=== PATIENT | female | born 1930 | race Caucasian/White ===

== ENCOUNTER 2018-02-09 19:45 | Emergency (ER) | END 2018-02-09 23:41 | disposition home or self-care (01) ==

== ENCOUNTER 2018-07-31 16:15 | Inpatient (IN) | payer MEDICARE, OTHER ==
[~2018-07-31] VITALS: Ht 160 cm; Wt 75.0 kg
[~2018-07-31 16:15] MED LIST: ATOR40TA68 PO; CARV3.1260 PO; CHOL200056 PO; DEXL60CA2 PO; GABA100C14 PO; GLIM2TAB PO; MELO7.5T38 PO; METF100010 PO; TRAM50TA2 PO; TRAZ-111 PO
[2018-07-31 16:34] VITALS: Ht 160 cm; Wt 75.0 kg
[2018-07-31] MEDS ORDERED: ONDANSETRON 4 MG INJ IV STA (19:28)
[2018-07-31] MEDS ORDERED: morphine 2 MG INJ IV STA (20:59)
[2018-07-31] MEDS ORDERED: SOD CHLORIDE 0.9% 1,000 ML IV ONE (21:00)
[2018-07-31] MEDS ORDERED: ONDANSETRON 4 MG INJ IV PRN ×2 (21:30→23:30)
[2018-07-31] MEDS ORDERED: ENOXAPARIN 80 MG/0.8 ML SYG SC SCH (21:30)
[2018-07-31] MEDS ORDERED: ACETAMINOPHEN 325 MG TAB PO PRN ×2 (21:30→23:30)
[2018-07-31 21:57] VITALS: PULSE 98
[2018-07-31] MEDS ORDERED: IODIXANOL LOCM 100 ML BTL ONE ×2 (21:58→23:16)
[2018-07-31] MEDS ORDERED: SOD CHLORIDE 0.9% 100 ML ONE ×2 (21:58→23:16)
[2018-07-31] MEDS ORDERED: ALBUTEROL/IPRATROPIUM (NEB) 3 ML AMP HHN PRN (23:30)
[2018-07-31] MEDS ORDERED: morphine 2 MG INJ IV PRN (23:30)
[2018-08-01] VITALS (14 sets, daily range): BP systolic 98–117; BP diastolic 51–65; PULSE 93–124; RESP 18
--- NOTE | 2018-08-01 01:11 | ERD ---
ER Documentation Chief Complaint Chief Complaint Pt reports L leg is painful swollen x 1 week causing n/v HPI This is an 88-year-old female with a past medical history of hypertension, hyperlipidemia, diabetes, heart failure, previous vascular surgery of the left lower extremity who is presenting with 1 week of progressive worsening left lower extremity swelling and pain. The patient's pain became so severe this evening that the patient was nauseated and had a few episodes of nonbilious nonbloody vomiting. The patient also endorses right shoulder and back pain of unclear chronicity. The patient reports that she has had waxing and waning episodes of this over the last 6 months to a year, but she does endorse pain today. She does not endorse chest pain or pleuritic pain, but she is tachycardic. The patient denies feeling sick recently. The patient denies fever or chills. The patient has had no headache or vision changes. The patient does not endorse neck or back pain. The patient denies lightheadedness or dizziness. The patient denies abdominal pain. The patient denies changes to bowel movements or urination. The patient has had no focal deficits. The patient has had no weakness or numbness or tingling to the face or extremities. ROS All systems reviewed and are negative except as per history of present illness. Medications Home Meds Active Scripts Tramadol HCl (Tramadol HCl) 50 Mg Tablet, 50 MG PO Q6 PRN for PAIN, #20 TAB Prov:RICHARD HOLLEY MD 05/14/18 Reported Medications Gabapentin* (Gabapentin*) 100 Mg Capsule, 100 MG PO BID, #90 CAP 05/14/18 Trazodone Hcl* (Trazodone Hcl*) 50 Mg Tablet, 50 MG PO QHS, #30 TAB 05/14/18 Cholecalciferol (Vitamin D3) (Vitamin D-3) 2,000 Unit Tablet, 2000 UNIT PO DAILY, TAB 02/09/18 Meloxicam* (Meloxicam*) 7.5 Mg Tablet, 7.5 MG PO BID, #30 TAB 02/09/18 Dexlansoprazole (Dexilant) 60 Mg Agustin., 60 MG PO DAILY, #30 CAP 10/14/17 Glimepiride* (Glimepiride*) 2 Mg Tablet, 2 MG PO WITH BREAKFAST DINNE, TAB 10/14/17 Atorvastatin* (Atorvastatin*) 40 Mg Tablet, 40 MG PO QHS, #30 TAB 10/14/17 Metformin Hcl* (Metformin Hcl*) 1,000 Mg Tablet, 1000 MG PO WITH BREAKFAST DINNE, #60 TAB 10/14/17 Carvedilol* (Carvedilol*) 3.125 Mg Tablet, 3.125 MG PO BID, #60 TAB 10/14/17 Allergies Allergies: Uncoded Allergies: PLASTIC TAPE (Allergy, Mild, 05/19/13) PMhx/Soc History of Surgery: Yes ((L)femoral arterial bypass,R arm sx, R elbow sx, (L) eye cataract sx) Anesthesia Reaction: No Hx Neurological Disorder: No Hx Respiratory Disorders: Yes (INFLUENZA A PNEUMONIA ) Hx Cardiac Disorders: Yes (LEFT FEMORAL ARTERIAL BYPASS, HTN ) Hx Psychiatric Problems: No Hx Miscellaneous Medical Probl: Yes (HTN,PNA,UTI,CKD,PAD,pulm embolism, DM) Hx Alcohol Use: No Hx Substance Use: No Hx Tobacco Use: No Smoking Status: Never smoker FmHx Family History: diabetes Physical Exam Vitals Vital Signs Date Temp Pulse Resp B/P (MAP) Pulse Ox O2 O2 Flow FiO2 Time Delivery Rate 07/31/18 114 16 103/52 97 Room Air 20:21 (69) 07/31/18 98.7 122 16 129/66 97 16:34 (87) Physical Exam Const: No apparent distress, well-developed, well-nourished Head: Normocephalic, Atraumatic Eyes: Normal Conjunctiva. Extraocular movements intact. Pupils equal, round and reactive to light ENT: Normal External Ears, Nose and Mouth. Neck: Full range of motion. No meningismus. Resp: Clear to auscultation bilaterally, No wheezes, rales or rhonchi Cardio: Regular rhythm. Tachycardia. No murmurs, rubs or gallops Abd: Soft, non tender, non distended. Normal bowel sounds Skin: No petechiae or rashes Back: No midline tenderness. No CVA tenderness Ext: No cyanosis. 2+ pitting left lower extremity edema. Neur: Awake and alert, oriented 4. Cranial nerves intact. No facial droop. Normal strength, sensation and coordination. Psych: Normal Mood and Affect Result Diagram: 07/31/18193407/31/181934 Results 24 hrs Laboratory Tests Test 07/31/18 19:35 White Blood Count 12.9 10^3/ul Red Blood Count 4.30 10^6/ul Hemoglobin 13.0 g/dl Hematocrit 40.2 % Mean Corpuscular Volume 93.5 fl Mean Corpuscular Hemoglobin 30.2 pg Mean Corpuscular Hemoglobin Concent 32.3 g/dl Red Cell Distribution Width 13.1 % Platelet Count 338 10^3/UL Mean Platelet Volume 10.4 fl Immature Granulocytes % 0.400 % Neutrophils % 45.1 % Lymphocytes % 45.6 % Monocytes % 6.7 % Eosinophils % 1.5 % Basophils % 0.7 % Nucleated Red Blood Cells % 0.0 /100WBC Immature Granulocytes # 0.050 10^3/ul Neutrophils # 5.8 10^3/ul Lymphocytes # 5.9 10^3/ul Monocytes # 0.9 10^3/ul Eosinophils # 0.2 10^3/ul Basophils # 0.1 10^3/ul Nucleated Red Blood Cells # 0.0 10^3/ul Prothrombin Time 13.8 Sec Prothrombin Time Ratio 1.1 INR International Normalized Ratio 1.05 Activated Partial Thromboplast Time 24.8 Sec D-Dimer 5340.38 ng/ml D-Dimer Comment Sodium Level 137 mmol/L Potassium Level 4.1 mmol/L Chloride Level 100 mmol/L Carbon Dioxide Level 27 mmol/L Anion Gap 10 Blood Urea Nitrogen 15 mg/dl Creatinine 1.22 mg/dl Est Glomerular Filtrat Rate mL/min mL/min Glucose Level 181 mg/dl Calcium Level 9.5 mg/dl Troponin I < 0.012 ng/ml B-Type Natriuretic Peptide 502 PG/ML Current Medications Medications Dose Sig/Shikha Start Time Status Last (Trade) Ordered Route PRN Stop Time Admin Dose Reason Admin Ondansetron 4 mg ONCE STAT 07/31/18 DC 07/31/18 HCl (Zofran IV 19:28 07/31/18 19:50 Inj) 19:30 Procedures/MDM MDM The patient's presentation warrants further investigation. Previous medical records, if available, were reviewed. LABS The patient's laboratory testing was obtained and reviewed. No emergent treatment was required unless described below. CBC: Mild leukocytosis without shift, low suspicion for an infection. No anemia or thrombocytopenia Chemistry: No E/o severe acidosis or alkalosis or diabetic ketoacidosis. Mildly elevated creatinine concerning for possible acute kidney injury. PT/INR: INR unremarkable. Significantly elevated d-dimer. Troponin: No E/o acute ischemia BNP: In an indeterminate range without clinical suspicion for heart failure EKG EKG read by me: Rate/Rhythm: Sinus tachycardia at 115 bpm Intervals: Normal [place]: Left axis deviation Impression: No evidence of acute ischemia. Sinus tachycardia. IMAGING Imaging and Radiology interpretation reviewed. CXR FINDINGS: Study technically degraded by patient kyphotic positioning, rotated in the [place]. Redemonstrated emphysematous changes with flattening of the diaphragms and coarsened interstitial markings. Stable mild eventration of the right hem idiaphragm. Patchy left basilar and lingular opacities suspicious for pneumonia. No identifiable effusion or pneumothorax. Heart size is normal. Atherosclerotic aortic knob. Trachea is midline. Osseous structures are grossly stable with diffuse bony demineralization and degenerative changes of the bilateral shoulders and spine. No free air below the diaphragms. IMPRESSION: Patchy left basilar and lingular opacities suspicious for pneumonia. COPD. Electronically viewed and signed by Physician Gama on 07/31/2018 20:32 Doppler LLE FINDINGS: There is echogenic material occluding the lumen of the left common femoral vein, femoral vein and popliteal vein. Bog[place] cannot be compressed and there is no flow on color-flow Doppler imaging. IMPRESSION: Occlusive deep venous thrombosis left common femoral vein, femoral vein and popliteal vein. Electronically viewed and signed by .Tod Thompson MD, MD on 07/31/2018 20:28 CTA Chest IMPRESSION: No pulmonary embolism is identified, however evaluation for segmental and subsegmental emboli in the lung bases is limited by respiratory motion. No pulmonary edema or consolidation. Small hiatal hernia. Single mildly enlarged right hilar lymph node, nonspecific. Electronically viewed and signed by Shahab Nash MD, MD on 08/01/2018 00:53 TREATMENT/DISPOSITION The patient presents with a significant left lower extremity DVT. She was given a dose of Lovenox in the emergency department. Given the size, I do feel that the patient would benefit from inpatient evaluation and management. The patient was tachycardic when she arrived. I was concerned about the possibility of pulmonary embolism, especially in the setting of an elevated d- dimer. The patient's CTA did not reveal this. At this time, I believe the patient's nausea and vomiting was related to her pain. At this time, I feel that the patient requires admission for further evaluation and management. The patient will be admitted to Dr. Crews in accordance with the patient's insurance. The patient was accepted by to telemetry at 20 1:30 PM on July 31, 2018. Disclaimer: Inadvertent spelling and grammatical errors are likely due to EHR/dictation software use and do not reflect on the overall quality of patient care. Note that the electronic time recorded on this note does not necessarily reflect the actual time of the patient encounter. Departure Diagnosis: Primary Impression: Deep vein thrombosis (DVT) of left lower extremity Affected thrombotic vein of extremity: femoral Chronicity: acute Qualified Codes: I82.412 - Acute embolism and thrombosis of left femoral vein Additional Impressions: Tachycardia Elevated d-dimer Leukocytosis Leukocytosis type: unspecified Qualified Codes: D72.829 - Elevated white blood cell count, unspecified NENO (acute kidney injury) Elevated brain natriuretic peptide (BNP) level Condition: Serious LAMONT REILLY MD Aug 01, 2018 01:09
[2018-08-01] MEDS: PANTOPRAZOLE (EC) 40 MG TAB PO SCH (06:52)
[2018-08-01] MEDS: INSULIN ASPART [NOVOLOG] 3 ML PEN SC SCH ×4 (07:55→20:10)
[2018-08-01] MEDS: GABAPENTIN 100 MG CAP PO SCH ×2 (08:54→20:10)
[2018-08-01] MEDS: CHOLECALCIFEROL 2,000 UNIT CAP PO SCH (08:55)
[2018-08-01] MEDS ORDERED: NON-FORMULARY/PATIENT OWN MED (Dexlansoprazole (Dexilant) 60 MG) PO SCH (09:00)
[2018-08-01] MEDS ORDERED: NON-FORMULARY/PATIENT OWN MED (Cholecalciferol (Vitamin D3) (Vitamin D-3) 2,000 UNIT) PO SCH (09:00)
--- NOTE | 2018-08-01 09:41 | HP ---
CINDY TURNER 08/01/18 0941: Date/Time of Note Date/Time of Note DATE: 08/01/18 TIME: 09:40 Assessment/Plan VTE Prophylaxis Risk score (from [facility])>0 risk: 5 SCD applied (from [employer] [facility]): No SCD contraindicated: DVT Pharmacological prophylaxis: LMWH Lines/Catheters IV Catheter Type (from [facility]): Saline Lock Urinary Cath still in place: No Assessment/Plan Hospital Course 1. Deep vein thrombosis (DVT) of left lower extremity:left common femoral vein, femoral vein and popliteal vein. Elevated d-dimer. 2. SIRS with tachycardia and leukocytosis. It might be reactive to clotting. Xray is positive for "Patchy left basilar and lingular opacities suspicious for pneumonia and COPD. 3. NENO, pt has few times creatinine raised to maximum to 1.74 4. CHF, BNP elevated 5. DM type II 6. Hx of left femoral arterial bypass 2012 7. Hx of both eyes cataract surgery 8. Overweight 9. COPD 10. Right shoulder pain. Xray is negative 11. Dyslipidemia 12. Hx of right elbow sx after fracture, most likely ORIF Assessment/Plan -start heparin drip -GI prophylaxis Protonix -pain medications -pain control -Dr Gonzalez consult, aware -Dr Tsai hematology consult, called -hypoglycemic control Result Diagram: 08/01/18 0510 08/01/18 0510 Results 24hrs Laboratory Tests Test 07/31/18 19:35 08/01/18 05:10 08/01/18 07:48 White Blood Count 12.9 H 12.7 H Red Blood Count 4.30 3.86 L Hemoglobin 13.0 11.7 L Hematocrit 40.2 35.6 L Mean Corpuscular Volume 93.5 92.2 Mean Corpuscular Hemoglobin 30.2 30.3 Mean Corpuscular Hemoglobin Concent 32.3 32.9 Red Cell Distribution Width 13.1 13.2 Platelet Count 338 # 297 Mean Platelet Volume 10.4 11.1 H Immature Granulocytes % 0.400 0.400 Neutrophils % 45.1 47.7 Lymphocytes % 45.6 41.5 Monocytes % 6.7 7.9 Eosinophils % 1.5 1.7 Basophils % 0.7 0.8 Nucleated Red Blood Cells % 0.0 0.0 Immature Granulocytes # 0.050 H 0.050 H Neutrophils # 5.8 6.1 Lymphocytes # 5.9 H 5.3 H Monocytes # 0.9 1.0 H Eosinophils # 0.2 0.2 Basophils # 0.1 0.1 Nucleated Red Blood Cells # 0.0 0.0 Prothrombin Time 13.8 Prothrombin Time Ratio 1.1 INR International Normalized Ratio 1.05 Activated Partial Thromboplast Time 24.8 D-Dimer 5340.38 H D-Dimer Comment Sodium Level 137 137 Potassium Level 4.1 4.1 Chloride Level 100 99 Carbon Dioxide Level 27 27 Anion Gap 10 11 Blood Urea Nitrogen 15 16 Creatinine 1.22 H 1.31 H Est Glomerular Filtrat Rate mL/min Glucose Level 181 164 Calcium Level 9.5 9.1 Troponin I < 0.012 B-Type Natriuretic Peptide 502 H Bedside Glucose 135 HPI/ROS Admit Date/Time Admit Date/Time Jul 31, 2018 at 20:49 Hx of Present Illness This is an 88-year-old female with a past medical history of hypertension, diabetes mellitus type II, hyperlipidemia, diabetes, heart failure, previous vascular surgery of the left lower extremity who is presenting to ER with 1, 5 week of progressive worsening left lower extremity. The leg is swollen and pain 8/10. Pt reported that she is unable to walk. Per family pt stopped walk 10 days ago. The patient's pain became so severe previous to ER visit that the patient was nauseated and had a few episodes of nonbilious nonbloody vomiting. The patient also report right shoulder and back pain for 6 month. ROS Respiratory: shortness of breath; No no complaints, No pain, No cough, No pleuritic pain, No sputum, No wheezing, No other Cardiovascular: chest pain, lightheadedness Musculoskeletal: bone/joint pain, restricted range of motion (right shoulder) PMH/Family/Social Past Medical History Medical History: deep vein thrombosis, diabetes, hypertension Medications Current Medications Ondansetron HCl (Zofran Inj) 4 mg ER BRIDGE PRN IV NAUSEA/VOMITING; Start 07/31/18 at 21:30; Stop 08/01/18 at 21:29 Acetaminophen (Tylenol Tab) 650 mg ER BRIDGE PRN PO .MILD PAIN 1-3 OR TEMP; Start 07/31/18 at 21:30; Stop 08/01/18 at 21:29 Atorvastatin Calcium (Lipitor) 40 mg QHS PO ; Start 08/02/18 at 21:00 Carvedilol (Coreg) 3.125 mg BID PO ; Start 08/01/18 at 09:00 Gabapentin (Neurontin) 100 mg BID PO Last administered on 08/01/18at 08:54; Admin Dose 100 MG; Start 08/01/18 at 09:00 Acetaminophen (Tylenol Tab) 650 mg Q6H PRN PO MILD PAIN(1-3)OR ELEVATED TEMP; Start 07/31/18 at 23:30 Morphine Sulfate (morphine) 2 mg Q4H PRN IV SEVERE PAIN LEVEL 7-10 Last administered on 08/01/18at 03:44; Admin Dose 2 MG; Start 07/31/18 at 23:30 Albuterol/ Ipratropium (Duoneb) 3 ml Q4H RESP THERAPY PRN HHN SHORTNESS OF BREATH; Start 07/31/18 at 23:30 Enoxaparin Sodium (Lovenox) 75 mg QPM SC ; Start 08/01/18 at 21:00 Ondansetron HCl (Zofran Inj) 4 mg Q4H PRN IV NAUSEA AND/OR VOMITING; Start 07/31/18 at 23:30 Insulin Aspart (Novolog Insulin Pen) NOVOLOG *MILD* ALGORITHM WITH MEALS BEDTIME SC ; Start 08/01/18 at 08:00 Cholecalciferol (Vitamin D) 2,000 unit DAILY PO Last administered on 08/01/18at 08:55; Admin Dose 2,000 UNIT; Start 08/01/18 at 09:00 Pantoprazole (Protonix Tab) 40 mg DAILY@06 PO Last administered on 08/01/18at 06:52; Admin Dose 40 MG; Start 08/01/18 at 06:00 Uncoded Allergies: PLASTIC TAPE (Allergy, Mild, 05/19/13) Past Surgical History Past Surgical Hx: other ((L)femoral arterial bypass, 2013, R elbow sx, both eyes cataract sx) Social History Smoking Status: Never smoker Exam/Review of Systems Vital Signs Vitals Vital Signs Date Temp Pulse Resp B/P (MAP) Pulse Ox O2 O2 Flow FiO2 Time Delivery Rate 08/01/18 98 99/53 (68) 08:56 08/01/18 98.3 18 100 07:23 07/31/18 Room Air 21:41 Intake and Output 07/31/18 07/31/18 08/01/18 1515:00 23:00 07:00 IntakeIntake Total 300 ml BalanceBalance 300 ml Exam Exam right shoulder full ROM Constitutional: alert, oriented Head: normocephalic Eyes: nl conjunctiva Neck: supple Respiratory: clear to auscultation Cardiovascular: regular rate and rhythm Gastrointestinal: soft Musculoskeletal: joint tenderness (right heel), swelling (left leg), other (l eft leg scar) SVETLANA KRISHNAN MD 08/01/18 1644: Assessment/Plan Assessment/Plan Assessment/Plan SEEN AND EXAMINED WITH [employer] [facility]E CONSULT ABX Result Diagram: 08/01/18 0510 08/01/18 0510 PMH/Family/Social Past Medical History Uncoded Allergies: PLASTIC TAPE (Allergy, Mild, 05/19/13) CINDY TONEY Aug 01, 2018 09:41 SVETLANA KRISHNAN MD Aug 01, 2018 16:44
[2018-08-01] MEDS ORDERED: HEPARIN 1000 UNITS/ML 10 ML INJ IV PRN (10:00)
[2018-08-01] MEDS ORDERED: HEPARIN 1000 UNITS/ML 10 ML INJ IV ONE ×2 (10:00)
[2018-08-01] MEDS ORDERED: GLUCOSE GEL 15 GRAM TUBE BUCCAL PRN (10:30)
[2018-08-01] MEDS ORDERED: GLUCAGON 1 MG INJ IM PRN (10:30)
[2018-08-01] MEDS ORDERED: GLUCOSE GEL 15 GRAM TUBE PO PRN ×2 (10:30)
[2018-08-01] MEDS ORDERED: DEXTROSE 50% 50 ML SYRINGE IV PRN ×2 (10:30)
[2018-08-01] MEDS: HEPARIN 25000 UNITS/250 ML 250 ML IV SCH ×2 (11:50→20:50)
--- NOTE | 2018-08-01 13:06 | CONS ---
Assessment/Plan Assessment/Plan Assessment/Plan (Daily) DVT left lower extremity involving the left common femoral vein popliteal vein Contraindication to heparin at the present time Tinea heparin patient will need anticoagulation for 3-6 months Consultation Date/Type/Reason Admit Date/Time Jul 31, 2018 at 20:49 Date of Consultation: Aug 01, 2018 Type of Consult Vascular surgery Reason for Consultation DVT Date/Time of Note DATE: 08/01/18 TIME: 13:04 Hx of Present Illness 88-year-old female was admitted because of the swelling of the left lower extremity Doppler ultrasound has been done which shows occlusive DVT involving the left femoral and popliteal vein patient is currently being treated with heparin swelling of the left lower extremity has decreased Respiratory: no complaints Cardiovascular: no complaints Gastrointestinal: no complaints Genitourinary: no complaints Musculoskeletal: no complaints Skin: no complaints Neurologic: no complaints Endocrine: no complaints Lymphatic: no complaints Psychological: no complaints, nl mood/affect Past Medical History Medical History: deep vein thrombosis, diabetes, hypertension Home Meds Active Scripts Tramadol HCl (Tramadol HCl) 50 Mg Tablet, 50 MG PO Q6 PRN for PAIN, #20 TAB Prov:RICHARD HOLLEY MD 05/14/18 Reported Medications Gabapentin* (Gabapentin*) 100 Mg Capsule, 100 MG PO BID, #90 CAP 05/14/18 Trazodone Hcl* (Trazodone Hcl*) 50 Mg Tablet, 50 MG PO QHS, #30 TAB 05/14/18 Cholecalciferol (Vitamin D3) (Vitamin D-3) 2,000 Unit Tablet, 2000 UNIT PO DAILY, TAB 02/09/18 Meloxicam* (Meloxicam*) 7.5 Mg Tablet, 7.5 MG PO BID, #30 TAB 02/09/18 Dexlansoprazole (Dexilant) 60 Mg , 60 MG PO DAILY, #30 CAP 10/14/17 Glimepiride* (Glimepiride*) 2 Mg Tablet, 2 MG PO WITH BREAKFAST DINNE, TAB 10/14/17 Atorvastatin* (Atorvastatin*) 40 Mg Tablet, 40 MG PO QHS, #30 TAB 10/14/17 Metformin Hcl* (Metformin Hcl*) 1,000 Mg Tablet, 1000 MG PO WITH BREAKFAST DINNE, #60 TAB 10/14/17 Carvedilol* (Carvedilol*) 3.125 Mg Tablet, 3.125 MG PO BID, #60 TAB 10/14/17 Medications Current Medications Ondansetron HCl (Zofran Inj) 4 mg ER BRIDGE PRN IV NAUSEA/VOMITING; Start 07/31/18 at 21:30; Stop 08/01/18 at 21:29 Acetaminophen (Tylenol Tab) 650 mg ER BRIDGE PRN PO .MILD PAIN 1-3 OR TEMP; Start 07/31/18 at 21:30; Stop 08/01/18 at 21:29 Atorvastatin Calcium (Lipitor) 40 mg QHS PO ; Start 08/02/18 at 21:00 Carvedilol (Coreg) 3.125 mg BID PO ; Start 08/01/18 at 09:00 Gabapentin (Neurontin) 100 mg BID PO Last administered on 08/01/18at 08:54; Admin Dose 100 MG; Start 08/01/18 at 09:00 Acetaminophen (Tylenol Tab) 650 mg Q6H PRN PO MILD PAIN(1-3)OR ELEVATED TEMP; Start 07/31/18 at 23:30 Morphine Sulfate (morphine) 2 mg Q4H PRN IV SEVERE PAIN LEVEL 7-10 Last administered on 08/01/18at 03:44; Admin Dose 2 MG; Start 07/31/18 at 23:30 Albuterol/ Ipratropium (Duoneb) 3 ml Q4H RESP THERAPY PRN HHN SHORTNESS OF BREATH; Start 07/31/18 at 23:30 Ondansetron HCl (Zofran Inj) 4 mg Q4H PRN IV NAUSEA AND/OR VOMITING; Start 07/31/18 at 23:30 Insulin Aspart (Novolog Insulin Pen) NOVOLOG *MILD* ALGORITHM WITH MEALS BEDTIME SC Last administered on 08/01/18at 11:54; Admin Dose 2 UNIT; Start 08/01/18 at 08:00 Cholecalciferol (Vitamin D) 2,000 unit DAILY PO Last administered on 08/01/18at 08:55; Admin Dose 2,000 UNIT; Start 08/01/18 at 09:00 Pantoprazole (Protonix Tab) 40 mg DAILY@06 PO Last administered on 08/01/18at 06:52; Admin Dose 40 MG; Start 08/01/18 at 06:00 Heparin Sodium (Porcine) (Heparin (1000 Units/ml)) 3,000 unit PER PROTOCOL PRN IV aPTT<47-57; Start 08/01/18 at 10:00 Heparin Sodium (Porcine) 250 ml @ 13.5 mls/hr PER PROTOCOL IV Last administer ed on 08/01/18at 11:50; Admin Dose 13.5 MLS/HR; Start 08/01/18 at 10:00 Miscellaneous Information 1 ea NOTE XX ; Start 08/01/18 at 10:30 Glucose (Glutose) 15 gm Q15M PRN PO DECREASED GLUCOSE; Start 08/01/18 at 10:30 Glucose (Glutose) 22.5 gm Q15M PRN PO DECREASED GLUCOSE; Start 08/01/18 at 10:30 Dextrose (D50w Syringe) 25 ml Q15M PRN IV DECREASED GLUCOSE; Start 08/01/18 at 10:30 Dextrose (D50w Syringe) 50 ml Q15M PRN IV DECREASED GLUCOSE; Start 08/01/18 at 10:30 Glucagon (Glucagen) 1 mg Q15M PRN IM DECREASED GLUCOSE; Start 08/01/18 at 10:30 Glucose (Glutose) 15 gm Q15M PRN BUCCAL DECREASED GLUCOSE; Start 08/01/18 at 10:30 Allergies: Uncoded Allergies: PLASTIC TAPE (Allergy, Mild, 05/19/13) Past Surgical History Past Surgical Hx: other ((L)femoral arterial bypass, 2012, R elbow sx, both eyes cataract sx) Social History Smoking Status: Never smoker Exam/Review of Systems Exam Vitals Vital Signs Date Temp Pulse Resp B/P (MAP) Pulse Ox O2 O2 Flow FiO2 Time Delivery Rate 08/01/18 114 12:26 08/01/18 98.0 18 98/56 (70) 95 11:33 07/31/18 Room Air 21:41 Intake and Output 07/31/18 07/31/18 08/01/18 1414:59 22:59 06:59 IntakeIntake Total 300 ml BalanceBalance 300 ml ENMT: nl external ears & nose, nl lips & teeth, nl nasal mucosa & septum Neck: supple, non-tender Respiratory: clear to auscultation, normal air movement Cardiovascular: regular rate and rhythm, nl pulses Gastrointestinal: soft, nl liver, spleen, non-tender Musculoskeletal: nl extremities to inspection, nl gait and stance Extremities: normal pulses Additional Comments Left lower extremity with swelling 1+ edema both feet are warm no signs of ischemia Left thigh slightly tender to touch Results Result Diagram: 08/01/18 0510 08/01/18 0510 Results 24hrs Laboratory Tests Test 07/31/18 19:35 08/01/18 05:10 08/01/18 07:48 08/01/18 11:27 White Blood Count 12.9 H 12.7 H Red Blood Count 4.30 3.86 L Hemoglobin 13.0 11.7 L Hematocrit 40.2 35.6 L Mean Corpuscular Volume 93.5 92.2 Mean Corpuscular 30.2 30.3 Hemoglobin Mean Corpuscular 32.3 32.9 Hemoglobin Concent Red Cell Distribution 13.1 13.2 Width Platelet Count 338 # 297 Mean Platelet Volume 10.4 11.1 H Immature Granulocytes % 0.400 0.400 Neutrophils % 45.1 47.7 Lymphocytes % 45.6 41.5 Monocytes % 6.7 7.9 Eosinophils % 1.5 1.7 Basophils % 0.7 0.8 Nucleated Red Blood 0.0 0.0 Cells % Immature Granulocytes # 0.050 H 0.050 H Neutrophils # 5.8 6.1 Lymphocytes # 5.9 H 5.3 H Monocytes # 0.9 1.0 H Eosinophils # 0.2 0.2 Basophils # 0.1 0.1 Nucleated Red Blood 0.0 0.0 Cells # Prothrombin Time 13.8 Prothrombin Time Ratio 1.1 INR International 1.05 Normalized Ratio Activated 24.8 Partial Thromboplast Time D-Dimer 5340.38 H D-Dimer Comment Sodium Level 137 137 Potassium Level 4.1 4.1 Chloride Level 100 99 Carbon Dioxide Level 27 27 Anion Gap 10 11 Blood Urea Nitrogen 15 16 Creatinine 1.22 H 1.31 H Est Glomerular Filtrat Rate mL/min Glucose Level 181 164 Calcium Level 9.5 9.1 Troponin I < 0.012 B-Type Natriuretic 502 H Peptide Bedside Glucose 135 187 Medications Medication Current Medications Ondansetron HCl (Zofran Inj) 4 mg ER BRIDGE PRN IV NAUSEA/VOMITING; Start 07/31/18 at 21:30; Stop 08/01/18 at 21:29 Acetaminophen (Tylenol Tab) 650 mg ER BRIDGE PRN PO .MILD PAIN 1-3 OR TEMP; Start 07/31/18 at 21:30; Stop 08/01/18 at 21:29 Atorvastatin Calcium (Lipitor) 40 mg QHS PO ; Start 08/02/18 at 21:00 Carvedilol (Coreg) 3.125 mg BID PO ; Start 08/01/18 at 09:00 Gabapentin (Neurontin) 100 mg BID PO Last administered on 08/01/18 08:54; Admin Dose 100 MG; Start 08/01/18 at 09:00 Acetaminophen (Tylenol Tab) 650 mg Q6H PRN PO MILD PAIN(1-3)OR ELEVATED TEMP; Start 07/31/18 at 23:30 Morphine Sulfate (morphine) 2 mg Q4H PRN IV SEVERE PAIN LEVEL 7-10 Last administered on 08/01/18 03:44; Admin Dose 2 MG; Start 07/31/18 at 23:30 Albuterol/ Ipratropium (Duoneb) 3 ml Q4H RESP THERAPY PRN HHN SHORTNESS OF BREATH; Start 07/31/18 at 23:30 Ondansetron HCl (Zofran Inj) 4 mg Q4H PRN IV NAUSEA AND/OR VOMITING; Start 07/31/18 at 23:30 Insulin Aspart (Novolog Insulin Pen) NOVOLOG *MILD* ALGORITHM WITH MEALS BEDTIME SC Last administered on 08/01/18 11:54; Admin Dose 2 UNIT; Start 08/01/18 at 08:00 Cholecalciferol (Vitamin D) 2,000 unit DAILY PO Last administered on 08/01/18 08:55; Admin Dose 2,000 UNIT; Start 08/01/18 at 09:00 Pantoprazole (Protonix Tab) 40 mg DAILY@06 PO Last administered on 08/01/18 06:52; Admin Dose 40 MG; Start 08/01/18 at 06:00 Heparin Sodium (Porcine) (Heparin (1000 Units/ml)) 3,000 unit PER PROTOCOL PRN IV aPTT<47-57; Start 08/01/18 at 10:00 Heparin Sodium (Porcine) 250 ml @ 13.5 mls/hr PER PROTOCOL IV Last ad ministered on 08/01/18 11:50; Admin Dose 13.5 MLS/HR; Start 08/01/18 at 10:00 Miscellaneous Information 1 ea NOTE XX ; Start 08/01/18 at 10:30 Glucose (Glutose) 15 gm Q15M PRN PO DECREASED GLUCOSE; Start 08/01/18 at 10:30 Glucose (Glutose) 22.5 gm Q15M PRN PO DECREASED GLUCOSE; Start 08/01/18 at 10:30 Dextrose (D50w Syringe) 25 ml Q15M PRN IV DECREASED GLUCOSE; Start 08/01/18 at 10:30 Dextrose (D50w Syringe) 50 ml Q15M PRN IV DECREASED GLUCOSE; Start 08/01/18 at 10:30 Glucagon (Glucagen) 1 mg Q15M PRN IM DECREASED GLUCOSE; Start 08/01/18 at 10:30 Glucose (Glutose) 15 gm Q15M PRN BUCCAL DECREASED GLUCOSE; Start 08/01/18 at 10:30 ZACHERY SCHUMACHER MD Aug 01, 2018 13:06
[2018-08-01] MEDS ORDERED: AZITHROMYCIN 500 MG in SOD CHLORIDE 0.9% 250 ML IVPB SCH (17:00)
[2018-08-01] MEDS: CEFTRIAXONE 1 GM/50 ML (PMX) 50 ML IVPB SCH (17:32)
[2018-08-01] MEDS: AZITHROMYCIN 500MG/NS (PMX) 250 ML IV SCH (18:24)
[2018-08-01] MEDS ORDERED: ENOXAPARIN 80 MG/0.8 ML SYG SC SCH (21:00)
[2018-08-02] VITALS (12 sets, daily range): BP systolic 105–132; BP diastolic 53–64; PULSE 95–112; RESP 17–18
[2018-08-02] MEDS: HEPARIN 25000 UNITS/250 ML 250 ML IV SCH ×2 (04:00→14:19)
[2018-08-02] MEDS: PANTOPRAZOLE (EC) 40 MG TAB PO SCH (06:17)
[2018-08-02] MEDS: INSULIN ASPART [NOVOLOG] 3 ML PEN SC SCH ×4 (08:00→20:32)
[2018-08-02] MEDS: GABAPENTIN 100 MG CAP PO SCH ×2 (08:47→20:33)
[2018-08-02] MEDS: CHOLECALCIFEROL 2,000 UNIT CAP PO SCH (08:47)
--- NOTE | 2018-08-02 14:36 | CONS ---
Assessment/Plan Assessment/Plan Hospital Course (Demo Recall) brady 88 yo sedentary, presented with LLE DVT at this point agree with continuation of heparin until she is ready to be discharged then hold heparin, after 2 hours can start eliquis 10 mg BID x 7 days with transition to 5 mg BID after do not recommend hypercoagulable w/u Consultation Date/Type/Reason Admit Date/Time Jul 31, 2018 at 20:49 Date/Time of Note DATE: 08/02/18 TIME: 14:36 Hx of Present Illness 88-year-old female with a past medical history of hypertension, hyperlipidemia, diabetes, heart failure, previous vascular surgery of the left lower extremity who is presenting with 1 week of progressive worsening left lower extremity swelling and pain. The patient's pain became so severe this evening that the patient was nauseated and had a few episodes of nonbilious nonbloody vomiting. US LE 08/01/18 in ER: Occlusive deep venous thrombosis left common femoral vein, femoral vein and popliteal vein. of nte her family reports she has been sitting a lot for the past 2 weeks also has h/o LLE clot (unclear if arterial or venous) in past. for which she was on coumadin x 2 years no family h/o DVT Constitutional: no complaints, improved Eyes: no complaints ENT: no complaints Respiratory: no complaints Cardiovascular: no complaints Genitourinary: no complaints Musculoskeletal: swelling Skin: no complaints Neurologic: no complaints Past Medical History Medical History: deep vein thrombosis, diabetes, hypertension Home Meds Active Scripts Tramadol HCl (Tramadol HCl) 50 Mg Tablet, 50 MG PO Q6 PRN for PAIN, #20 TAB Prov:RICHARD HOLLEY MD 05/14/18 Reported Medications Gabapentin* (Gabapentin*) 100 Mg Capsule, 100 MG PO BID, #90 CAP 05/14/18 Trazodone Hcl* (Trazodone Hcl*) 50 Mg Tablet, 50 MG PO QHS, #30 TAB 05/14/18 Cholecalciferol (Vitamin D3) (Vitamin D-3) 2,000 Unit Tablet, 2000 UNIT PO DAILY, TAB 02/09/18 Meloxicam* (Meloxicam*) 7.5 Mg Tablet, 7.5 MG PO BID, #30 TAB 02/09/18 Dexlansoprazole (Dexilant) 60 Mg , 60 MG PO DAILY, #30 CAP 10/14/17 Glimepiride* (Glimepiride*) 2 Mg Tablet, 2 MG PO WITH BREAKFAST DINNE, TAB 10/14/17 Atorvastatin* (Atorvastatin*) 40 Mg Tablet, 40 MG PO QHS, #30 TAB 10/14/17 Metformin Hcl* (Metformin Hcl*) 1,000 Mg Tablet, 1000 MG PO WITH BREAKFAST DINNE, #60 TAB 10/14/17 Carvedilol* (Carvedilol*) 3.125 Mg Tablet, 3.125 MG PO BID, #60 TAB 10/14/17 Medications Current Medications Atorvastatin Calcium (Lipitor) 40 mg QHS PO ; Start 08/02/18 at 21:00 Carvedilol (Coreg) 3.125 mg BID PO Last administered on 08/02/18at 08:47; Admin Dose 3.125 MG; Start 08/01/18 at 09:00 Gabapentin (Neurontin) 100 mg BID PO Last administered on 08/02/18at 08:47; Admin Dose 100 MG; Start 08/01/18 at 09:00 Acetaminophen (Tylenol Tab) 650 mg Q6H PRN PO MILD PAIN(1-3)OR ELEVATED TEMP; Start 07/31/18 at 23:30 Morphine Sulfate (morphine) 2 mg Q4H PRN IV SEVERE PAIN LEVEL 7-10 Last administered on 08/01/18at 03:44; Admin Dose 2 MG; Start 07/31/18 at 23:30 Albuterol/ Ipratropium (Duoneb) 3 ml Q4H RESP THERAPY PRN HHN SHORTNESS OF BREATH; Start 07/31/18 at 23:30 Ondansetron HCl (Zofran Inj) 4 mg Q4H PRN IV NAUSEA AND/OR VOMITING; Start 07/31/18 at 23:30 Insulin Aspart (Novolog Insulin Pen) NOVOLOG *MILD* ALGORITHM WITH MEALS BEDTIME SC Last administered on 08/02/18at 11:42; Admin Dose 2 UNIT; Start 08/01/18 at 08:00 Cholecalciferol (Vitamin D) 2,000 unit DAILY PO Last administered on 08/02/18 08:47; Admin Dose 2,000 UNIT; Start 08/01/18 at 09:00 Pantoprazole (Protonix Tab) 40 mg DAILY@06 PO Last administered on 08/02/18at 06:17; Admin Dose 40 MG; Start 08/01/18 at 06:00 Heparin Sodium (Porcine) (Heparin (1000 Units/ml)) 3,000 unit PER PROTOCOL PRN IV aPTT<47-57; Start 08/01/18 at 10:00 Heparin Sodium (Porcine) 250 ml @ 13.5 mls/hr PER PROTOCOL IV Last administered on 08/02/18at 14:19; Admin Dose 10 MLS/HR; Start 08/01/18 at 10:00 Miscellaneous Information 1 ea NOTE XX ; Start 08/01/18 at 10:30 Glucose (Glutose) 15 gm Q15M PRN PO DECREASED GLUCOSE; Start 08/01/18 at 10:30 Glucose (Glutose) 22.5 gm Q15M PRN PO DECREASED GLUCOSE; Start 08/01/18 at 10:30 Dextrose (D50w Syringe) 25 ml Q15M PRN IV DECREASED GLUCOSE; Start 08/01/18 at 10:30 Dextrose (D50w Syringe) 50 ml Q15M PRN IV DECREASED GLUCOSE; Start 08/01/18 at 10:30 Glucagon (Glucagen) 1 mg Q15M PRN IM DECREASED GLUCOSE; Start 08/01/18 at 10:30 Glucose (Glutose) 15 gm Q15M PRN BUCCAL DECREASED GLUCOSE; Start 08/01/18 at 10:30 Ceftriaxone Sodium 50 ml @ 100 mls/hr Q24H IVPB Last administered on 08/01/18at 17:32; Admin Dose 100 MLS/HR; Start 08/01/18 at 17:00 Azithromycin 250 ml @ 250 mls/hr Q24H IV Last administered on 08/01/18at 18:24; Admin Dose 250 MLS/HR; Start 08/01/18 at 17:30 Allergies: Uncoded Allergies: PLASTIC TAPE (Allergy, Mild, 05/19/13) Past Surgical History Past Surgical Hx: other ((L)femoral arterial bypass, 2013, R elbow sx, both eyes cataract sx) Social History Smoking Status: Never smoker Exam/Review of Systems Exam Vitals Vital Signs Date Temp Pulse Resp B/P (MAP) Pulse Ox O2 O2 Flow FiO2 Time Delivery Rate 08/02/18 112 12:01 08/02/18 98.4 18 123/59 100 11:24 (80) 07/31/18 Room Air 21:41 Intake and Output 08/01/18 08/01/18 08/02/18 1515:00 23:00 07:00 IntakeIntake Total 894.5 ml 400 ml BalanceBalance 894.5 ml 400 ml Constitutional: frail Head: normocephalic, atraumatic Eyes: nl conjunctiva, EOMI, nl lids, nl sclera, PERRL Extremities: normal pulses Results Result Diagram: 08/02/18 0529 08/02/18 0529 Results 24hrs Laboratory Tests Test 08/01/18 17:06 08/01/18 18:24 08/01/18 19:59 08/01/18 20:09 Bedside Glucose 114 169 Activated > 180.0 *H 109.2 *H Partial Thromboplast Time Test 08/02/18 02:14 08/02/18 05:29 08/02/18 05:40 08/02/18 08:07 Activated 142.4 *H Partial Thromboplast Time White Blood Count 10.9 H Red Blood Count 3.86 L Hemoglobin 11.7 L Hematocrit 35.7 L Mean Corpuscular Volume 92.5 Mean Corpuscular 30.3 Hemoglobin Mean Corpuscular 32.8 Hemoglobin Concent Red Cell Distribution 13.4 Width Platelet Count 287 Mean Platelet Volume 11.2 H Immature Granulocytes % 0.300 Neutrophils % 45.4 Lymphocytes % 41.5 Monocytes % 9.3 Eosinophils % 2.5 Basophils % 1.0 Nucleated Red Blood 0.0 Cells % Immature Granulocytes # 0.030 Neutrophils # 4.9 Lymphocytes # 4.5 H Monocytes # 1.0 H Eosinophils # 0.3 Basophils # 0.1 Nucleated Red Blood 0.0 Cells # Sodium Level 138 Potassium Level 4.2 Chloride Level 104 Carbon Dioxide Level 25 Anion Gap 9 Blood Urea Nitrogen 17 Creatinine 1.30 H Est Glomerular Filtrat Rate mL/min Glucose Level 85 # Calcium Level 8.8 Hemoglobin A1c 7.9 H Bedside Glucose 94 Test 08/02/18 08:17 08/02/18 11:35 Activated 84.7 *H Partial Thromboplast Time Bedside Glucose 200 Medications Medication Current Medications Atorvastatin Calcium (Lipitor) 40 mg QHS PO ; Start 08/02/18 at 21:00 Carvedilol (Coreg) 3.125 mg BID PO Last administered on 3/4/19at 08:47; Admin Dose 3.125 MG; Start 08/01/18 at 09:00 Gabapentin (Neurontin) 100 mg BID PO Last administered on 08/02/18 08:47; Admin Dose 100 MG; Start 08/01/18 at 09:00 Acetaminophen (Tylenol Tab) 650 mg Q6H PRN PO MILD PAIN(1-3)OR ELEVATED TEMP; Start 07/31/18 at 23:30 Morphine Sulfate (morphine) 2 mg Q4H PRN IV SEVERE PAIN LEVEL 7-10 Last administered on 08/01/18 03:44; Admin Dose 2 MG; Start 07/31/18 at 23:30 Albuterol/ Ipratropium (Duoneb) 3 ml Q4H RESP THERAPY PRN HHN SHORTNESS OF BREATH; Start 07/31/18 at 23:30 Ondansetron HCl (Zofran Inj) 4 mg Q4H PRN IV NAUSEA AND/OR VOMITING; Start 07/31/18 at 23:30 Insulin Aspart (Novolog Insulin Pen) NOVOLOG *MILD* ALGORITHM WITH MEALS BE DTIME SC Last administered on 08/02/18 11:42; Admin Dose 2 UNIT; Start 08/01/18 at 08:00 Cholecalciferol (Vitamin D) 2,000 unit DAILY PO Last administered on 08/02/18 08:47; Admin Dose 2,000 UNIT; Start 08/01/18 at 09:00 Pantoprazole (Protonix Tab) 40 mg DAILY@06 PO Last administered on 08/02/18 06 :17; Admin Dose 40 MG; Start 08/01/18 at 06:00 Heparin Sodium (Porcine) (Heparin (1000 Units/ml)) 3,000 unit PER PROTOCOL PRN IV aPTT<47-57; Start 08/01/18 at 10:00 Heparin Sodium (Porcine) 250 ml @ 13.5 mls/hr PER PROTOCOL IV Last administered on 08/02/18 14:19; Admin Dose 10 MLS/HR; Start 08/01/18 at 10:00 Miscellaneous Information 1 ea NOTE XX ; Start 08/01/18 at 10:30 Glucose (Glutose) 15 gm Q15M PRN PO DECREASED GLUCOSE; Start 08/01/18 at 10:30 Glucose (Glutose) 22.5 gm Q15M PRN PO DECREASED GLUCOSE; Start 08/01/18 at 10:30 Dextrose (D50w Syringe) 25 ml Q15M PRN IV DECREASED GLUCOSE; Start 08/01/18 at 10:30 Dextrose (D50w Syringe) 50 ml Q15M PRN IV DECREASED GLUCOSE; Start 08/01/18 at 10:30 Glucagon (Glucagen) 1 mg Q15M PRN IM DECREASED GLUCOSE; Start 08/01/18 at 10:30 Glucose (Glutose) 15 gm Q15M PRN BUCCAL DECREASED GLUCOSE; Start 08/01/18 at 10:30 Ceftriaxone Sodium 50 ml @ 100 mls/hr Q24H IVPB Last administered on 08/01/18at 17:32; Admin Dose 100 MLS/HR; Start 08/01/18 at 17:00 Azithromycin 250 ml @ 250 mls/hr Q24H IV Last administered on 08/01/18at 18:24; Admin Dose 250 MLS/HR; Start 08/01/18 at 17:30 MELCHOR LUNA Aug 02, 2018 14:36
[2018-08-02] MEDS ORDERED: morphine LIQ (10 MG/5 ML) CUP PO PRN (16:00)
--- NOTE | 2018-08-02 16:26 | PN ---
Date/Time of Note Date/Time of Note DATE: 08/02/18 TIME: 16:24 Assessment/Plan VTE Prophylaxis Risk score (from Ns)>0 risk: 9 SCD applied (from [facility] [place]): No SCD contraindicated: low risk/ambulating Pharmacological prophylaxis: NA/contraindicated Pharm contraindication: low risk/ambulating Lines/Catheters IV Catheter Type (from [facility]): Saline Lock Urinary Cath still in place: No Assessment/Plan Hospital Course Hospital Course 1. Deep vein thrombosis (DVT) of left lower extremity:left common femoral vein, femoral vein and popliteal vein. Elevated d-dimer. Likley due to immobility, hx PE in past > off anticoagulation 2. SIRS with tachycardia and leukocytosis. It might be reactive to clotting. Xray is positive for "Patchy left basilar and lingular opacities suspicious for pneumonia and COPD. 3. CKD 4. CHF, BNP elevated 5. DM type II 6. Hx of left femoral arterial bypass 2012 7. Hx of both eyes cataract surgery 8. Overweight 9. COPD 10. Right shoulder pain. Xray is negative 11. Dyslipidemia 12. Hx of right elbow sx after fracture, most likely ORIF Assessment/Plan - dc heparin 2 hrs after , start eliquis - PT eval - iv rocephin/azithromycin -GI prophylaxis Protonix -pain medications -pain control - f/u Heme recs Result Diagram: 08/02/18 0529 08/02/18 0529 Results 24hrs Laboratory Tests Test 08/01/18 17:06 08/01/18 18:24 08/01/18 19:59 08/01/18 20:09 Bedside Glucose 114 169 Activated > 180.0 *H 109.2 *H Partial Thromboplast Time Test 08/02/18 02:14 08/02/18 05:29 08/02/18 05:40 08/02/18 08:07 Activated 142.4 *H Partial Thromboplast Time White Blood Count 10.9 H Red Blood Count 3.86 L Hemoglobin 11.7 L Hematocrit 35.7 L Mean Corpuscular Volume 92.5 Mean Corpuscular 30.3 Hemoglobin Mean Corpuscular 32.8 Hemoglobin Concent Red Cell Distribution 13.4 Width Platelet Count 287 Mean Platelet Volume 11.2 H Immature Granulocytes % 0.300 Neutrophils % 45.4 Lymphocytes % 41.5 Monocytes % 9.3 Eosinophils % 2.5 Basophils % 1.0 Nucleated Red Blood 0.0 Cells % Immature Granulocytes # 0.030 Neutrophils # 4.9 Lymphocytes # 4.5 H Monocytes # 1.0 H Eosinophils # 0.3 Basophils # 0.1 Nucleated Red Blood 0.0 Cells # Sodium Level 138 Potassium Level 4.2 Chloride Level 104 Carbon Dioxide Level 25 Anion Gap 9 Blood Urea Nitrogen 17 Creatinine 1.30 H Est Glomerular Filtrat Rate mL/min Glucose Level 85 # Calcium Level 8.8 Hemoglobin A1c 7.9 H Bedside Glucose 94 Test 08/02/18 08:17 08/02/18 11:35 08/02/18 14:43 Activated 84.7 *H 42.8 H Partial Thromboplast Time Bedside Glucose 200 Subjective 24 Hr Interval Summary Free Text/Dictation Left leg swelling is less Exam/Review of Systems Exam Vitals Vital Signs Date Temp Pulse Resp B/P (MAP) Pulse Ox O2 O2 Flow FiO2 Time Delivery Rate 08/02/18 103 16:01 08/02/18 98.6 18 105/53 99 15:09 (70) 07/31/18 Room Air 21:41 Intake and Output 08/01/18 08/01/18 08/02/18 1515:00 23:00 07:00 IntakeIntake Total 894.5 ml 400 ml BalanceBalance 894.5 ml 400 ml Exam right shoulder full ROM Constitutional: alert, oriented Head: normocephalic Eyes: nl conjunctiva Neck: supple Respiratory: clear to auscultation Cardiovascular: regular rate and rhythm Gastrointestinal: soft Musculoskeletal: joint tenderness (right heel), swelling (left leg), other (left leg scar) Results Results 24hrs Laboratory Tests Test 08/01/18 17:06 08/01/18 18:24 08/01/18 19:59 08/01/18 20:09 Bedside Glucose 114 169 Activated > 180.0 *H 109.2 *H Partial Thromboplast Time Test 08/02/18 02:14 08/02/18 05:29 08/02/18 05:40 08/02/18 08:07 Activated 142.4 *H Partial Thromboplast Time White Blood Count 10.9 H Red Blood Count 3.86 L Hemoglobin 11.7 L Hematocrit 35.7 L Mean Corpuscular Volume 92.5 Mean Corpuscular 30.3 Hemoglobin Mean Corpuscular 32.8 Hemoglobin Concent Red Cell Distribution 13.4 Width Platelet Count 287 Mean Platelet Volume 11.2 H Immature Granulocytes % 0.300 Neutrophils % 45.4 Lymphocytes % 41.5 Monocytes % 9.3 Eosinophils % 2.5 Basophils % 1.0 Nucleated Red Blood 0.0 Cells % Immature Granulocytes # 0.030 Neutrophils # 4.9 Lymphocytes # 4.5 H Monocytes # 1.0 H Eosinophils # 0.3 Basophils # 0.1 Nucleated Red Blood 0.0 Cells # Sodium Level 138 Potassium Level 4.2 Chloride Level 104 Carbon Dioxide Level 25 Anion Gap 9 Blood Urea Nitrogen 17 Creatinine 1.30 H Est Glomerular Filtrat Rate mL/min Glucose Level 85 # Calcium Level 8.8 Hemoglobin A1c 7.9 H Bedside Glucose 94 Test 08/02/18 08:17 08/02/18 11:35 08/02/18 14:43 Activated 84.7 *H 42.8 H Partial Thromboplast Time Bedside Glucose 200 Medications Medication Current Medications Atorvastatin Calcium (Lipitor) 40 mg QHS PO ; Start 08/02/18 at 21:00 Carvedilol (Coreg) 3.125 mg BID PO Last administered on 08/02/18at 08:47; Admin Dose 3.125 MG; Start 08/01/18 at 09:00 Gabapentin (Neurontin) 100 mg BID PO Last administered on 08/02/18 08:47; Admin Dose 100 MG; Start 08/01/18 at 09:00 Acetaminophen (Tylenol Tab) 650 mg Q6H PRN PO MILD PAIN(1-3)OR ELEVATED TEMP; Start 07/31/18 at 23:30 Albuterol/ Ipratropium (Duoneb) 3 ml Q4H RESP THERAPY PRN HHN SHORTNESS OF BREATH; Start 07/31/18 at 23:30 Ondansetron HCl (Zofran Inj) 4 mg Q4H PRN IV NAUSEA AND/OR VOMITING; Start 07/31/18 at 23:30 Insulin Aspart (Novolog Insulin Pen) NOVOLOG *MILD* ALGORITHM WITH MEALS BEDTIME SC Last administered on 08/02/18at 11:42; Admin Dose 2 UNIT; Start 08/01/18 at 08:00 Cholecalciferol (Vitamin D) 2,000 unit DAILY PO Last administered on 08/02/18 08:47; Admin Dose 2,000 UNIT; Start 08/01/18 at 09:00 Pantoprazole (Protonix Tab) 40 mg DAILY@06 PO Last administered on 08/02/18at 06:17; Admin Dose 40 MG; Start 08/01/18 at 06:00 Heparin Sodium (Porcine) (Heparin (1000 Units/ml)) 3,000 unit PER PROTOCOL PRN IV aPTT<47-57; Start 08/01/18 at 10:00 Heparin Sodium (Porcine) 250 ml @ 13.5 mls/hr PER PROTOCOL IV Last administered on 08/02/18at 14:19; Admin Dose 10 MLS/HR; Start 08/01/18 at 10:00 Miscellaneous Information 1 ea NOTE XX ; Start 08/01/18 at 10:30 Glucose (Glutose) 15 gm Q15M PRN PO DECREASED GLUCOSE; Start 08/01/18 at 10:30 Glucose (Glutose) 22.5 gm Q15M PRN PO DECREASED GLUCOSE; Start 08/01/18 at 10:30 Dextrose (D50w Syringe) 25 ml Q15M PRN IV DECREASED GLUCOSE; Start 08/01/18 at 10:30 Dextrose (D50w Syringe) 50 ml Q15M PRN IV DECREASED GLUCOSE; Start 08/01/18 at 10:30 Glucagon (Glucagen) 1 mg Q15M PRN IM DECREASED GLUCOSE; Start 08/01/18 at 10:30 Glucose (Glutose) 15 gm Q15M PRN BUCCAL DECREASED GLUCOSE; Start 08/01/18 at 10:30 Ceftriaxone Sodium 50 ml @ 100 mls/hr Q24H IVPB Last administered on 08/01/18at 17:32; Admin Dose 100 MLS/HR; Start 08/01/18 at 17:00 Azithromycin 250 ml @ 250 mls/hr Q24H IV Last administered on 08/01/18at 18:24; Admin Dose 250 MLS/HR; Start 08/01/18 at 17:30 Morphine Sulfate (morphine) 6 mg Q4H PRN PO SEVERE PAIN LEVEL 7-10; Start 08/02/18 at 16:00 Apixaban (Eliquis) 10 mg BID PO ; Start 08/02/18 at 21:00; Status SVETLANA HUDSON MD Aug 02, 2018 16:26
--- NOTE | 2018-08-02 16:52 | CONS ---
Assessment/Plan Assessment/Plan Assessment/Plan (Daily) Corns/callus DM2 with peripheral neuropathy PAD s/p bypass surgery Hx of partial calcanectomy of left foot DVT left lower extremity Plan: X-ray of left foot and bilateral non invasive arterial studies of the lower extremity ordered. Recommend offloading of heels with pillows. No open wounds sites or deep tissue injury sites appreciated. DVT scan showed occlusive deep venous thrombosis left common femoral vein, femoral vein and popliteal vein. Patient on anticoagulation. Patient may follow up in outpatient clinic [facility]. Consultation Date/Type/Reason Admit Date/Time Jul 31, 2018 at 20:49 Date/Time of Note DATE: 08/02/18 TIME: 16:52 Hx of Present Illness 88 y/o F patient with hx of hypertension, diabetes mellitus type II, hyperlipidemia, diabetes, heart failure, previous vascular surgery of the left lower extremity, patient presents to the floor with pain and swelling to the left lower extremity. Patient describes burning sensations to both feet but majority to her left foot. DVT scan also shows occlusive deep venous thrombosis left common femoral vein, femoral vein and popliteal vein. Patient denies f/c/n/v no chest pain or shortness of breath. No open wound sites were noted. ROS Neg except for HPI Past Medical History Medical History: deep vein thrombosis, diabetes, hypertension Home Meds Active Scripts Tramadol HCl (Tramadol HCl) 50 Mg Tablet, 50 MG PO Q6 PRN for PAIN, #20 TAB Prov:RICHARD HOLLEY MD 05/14/18 Reported Medications Gabapentin* (Gabapentin*) 100 Mg Capsule, 100 MG PO BID, #90 CAP 05/14/18 Trazodone Hcl* (Trazodone Hcl*) 50 Mg Tablet, 50 MG PO QHS, #30 TAB 05/14/18 Cholecalciferol (Vitamin D3) (Vitamin D-3) 2,000 Unit Tablet, 2000 UNIT PO DAILY, TAB 02/09/18 Meloxicam* (Meloxicam*) 7.5 Mg Tablet, 7.5 MG PO BID, #30 TAB 02/09/18 Dexlansoprazole (Dexilant) 60 Mg Agustin., 60 MG PO DAILY, #30 CAP 10/14/17 Glimepiride* (Glimepiride*) 2 Mg Tablet, 2 MG PO WITH BREAKFAST DINNE, TAB 10/14/17 Atorvastatin* (Atorvastatin*) 40 Mg Tablet, 40 MG PO QHS, #30 TAB 10/14/17 Metformin Hcl* (Metformin Hcl*) 1,000 Mg Tablet, 1000 MG PO WITH BREAKFAST DINNE, #60 TAB 10/14/17 Carvedilol* (Carvedilol*) 3.125 Mg Tablet, 3.125 MG PO BID, #60 TAB 10/14/17 Medications Current Medications Atorvastatin Calcium (Lipitor) 40 mg QHS PO ; Start 08/02/18 at 21:00 Carvedilol (Coreg) 3.125 mg BID PO Last administered on 08/02/18 08:47; Admin Dose 3.125 MG; Start 08/01/18 at 09:00 Gabapentin (Neurontin) 100 mg BID PO Last administered on 08/02/18 08:47; Admin Dose 100 MG; Start 08/01/18 at 09:00 Acetaminophen (Tylenol Tab) 650 mg Q6H PRN PO MILD PAIN(1-3)OR ELEVATED TEMP; Start 07/31/18 at 23:30 Albuterol/ Ipratropium (Duoneb) 3 ml Q4H RESP THERAPY PRN HHN SHORTNESS OF BREATH; Start 07/31/18 at 23:30 Ondansetron HCl (Zofran Inj) 4 mg Q4H PRN IV NAUSEA AND/OR VOMITING; Start 07/31/18 at 23:30 Insulin Aspart (Novolog Insulin Pen) NOVOLOG *MILD* ALGORITHM WITH MEALS BEDTIME SC Last administered on 08/02/18at 11:42; Admin Dose 2 UNIT; Start 08/01/18 at 08:00 Cholecalciferol (Vitamin D) 2,000 unit DAILY PO Last administered on 08/02/18 08:47; Admin Dose 2,000 UNIT; Start 08/01/18 at 09:00 Pantoprazole (Protonix Tab) 40 mg DAILY@06 PO Last administered on 08/02/18at 06:17; Admin Dose 40 MG; Start 08/01/18 at 06:00 Miscellaneous Information 1 ea NOTE XX ; Start 08/01/18 at 10:30 Glucose (Glutose) 15 gm Q15M PRN PO DECREASED GLUCOSE; Start 08/01/18 at 10:30 Glucose (Glutose) 22.5 gm Q15M PRN PO DECREASED GLUCOSE; Start 08/01/18 at 10:30 Dextrose (D50w Syringe) 25 ml Q15M PRN IV DECREASED GLUCOSE; Start 08/01/18 at 10:30 Dextrose (D50w Syringe) 50 ml Q15M PRN IV DECREASED GLUCOSE; Start 08/01/18 at 10:30 Glucagon (Glucagen) 1 mg Q15M PRN IM DECREASED GLUCOSE; Start 08/01/18 at 10:30 Glucose (Glutose) 15 gm Q15M PRN BUCCAL DECREASED GLUCOSE; Start 08/01/18 at 10:30 Ceftriaxone Sodium 50 ml @ 100 mls/hr Q24H IVPB Last administered on 08/01/18at 17:32; Admin Dose 100 MLS/HR; Start 08/01/18 at 17:00 Azithromycin 250 ml @ 250 mls/hr Q24H IV Last administered on 08/01/18at 18:24; Admin Dose 250 MLS/HR; Start 08/01/18 at 17:30 Morphine Sulfate (morphine) 6 mg Q4H PRN PO SEVERE PAIN LEVEL 7-10; Start 08/02/18 at 16:00 Apixaban (Eliquis) 10 mg BID PO ; Start 08/02/18 at 21:00 Allergies: Uncoded Allergies: PLASTIC TAPE (Allergy, Mild, 05/19/13) Past Surgical History Past Surgical Hx: other ((L)femoral arterial bypass, 2012, R elbow sx, both eyes cataract sx) Family History Significant Family History: no pertinent family hx Social History Smoking Status: Never smoker Exam/Review of Systems Exam Vitals Vital Signs Date Temp Pulse Resp B/P (MAP) Pulse Ox O2 O2 Flow FiO2 Time Delivery Rate 08/02/18 103 16:01 08/02/18 98.6 18 105/53 99 15:09 (70) 07/31/18 Room Air 21:41 Intake and Output 08/01/18 08/01/18 08/02/18 1515:00 23:00 07:00 IntakeIntake Total 894.5 ml 400 ml BalanceBalance 894.5 ml 400 ml Exam Unable to palpate DP/PT and popliteal pulses Skin temperature gradient warm to warm from proximal leg to distal feet CFT less than 3 seconds to the digits epithelialized skin sites of the left lower extremity. Surgical site left calcaneus appreciated. No ecchymosis, no necrotic or ischemic changes appreciated to bilateral feet Absent protective sensations No pain with calf squeeze Mild HPK lesion noted to plantar left heel Results Result Diagram: 08/02/18 0529 08/02/18 0529 Results 24hrs Laboratory Tests Test 08/01/18 17:06 08/01/18 18:24 08/01/18 19:59 08/01/18 20:09 Bedside Glucose 114 169 Activated > 180.0 *H 109.2 *H Partial Thromboplast Time Test 08/02/18 02:14 08/02/18 05:29 08/02/18 05:40 08/02/18 08:07 Activated 142.4 *H Partial Thromboplast Time White Blood Count 10.9 H Red Blood Count 3.86 L Hemoglobin 11.7 L Hematocrit 35.7 L Mean Corpuscular Volume 92.5 Mean Corpuscular 30.3 Hemoglobin Mean Corpuscular 32.8 Hemoglobin Concent Red Cell Distribution 13.4 Width Platelet Count 287 Mean Platelet Volume 11.2 H Immature Granulocytes % 0.300 Neutrophils % 45.4 Lymphocytes % 41.5 Monocytes % 9.3 Eosinophils % 2.5 Basophils % 1.0 Nucleated Red Blood 0.0 Cells % Immature Granulocytes # 0.030 Neutrophils # 4.9 Lymphocytes # 4.5 H Monocytes # 1.0 H Eosinophils # 0.3 Basophils # 0.1 Nucleated Red Blood 0.0 Cells # Sodium Level 138 Potassium Level 4.2 Chloride Level 104 Carbon Dioxide Level 25 Anion Gap 9 Blood Urea Nitrogen 17 Creatinine 1.30 H Est Glomerular Filtrat Rate mL/min Glucose Level 85 # Calcium Level 8.8 Hemoglobin A1c 7.9 H Bedside Glucose 94 Test 08/02/18 08:17 08/02/18 11:35 08/02/18 14:43 Activated 84.7 *H 42.8 H Partial Thromboplast Time Bedside Glucose 200 Medications Medication Current Medications Atorvastatin Calcium (Lipitor) 40 mg QHS PO ; Start 08/02/18 at 21:00 Carvedilol (Coreg) 3.125 mg BID PO Last administered on 08/02/18at 08:47; Admin Dose 3.125 MG; Start 08/01/18 at 09:00 Gabapentin (Neurontin) 100 mg BID PO Last administered on 08/02/18at 08:47; Admin Dose 100 MG; Start 08/01/18 at 09:00 Acetaminophen (Tylenol Tab) 650 mg Q6H PRN PO MILD PAIN(1-3)OR ELEVATED TEMP; Start 07/31/18 at 23:30 Albuterol/ Ipratropium (Duoneb) 3 ml Q4H RESP THERAPY PRN HHN SHORTNESS OF BREATH; Start 07/31/18 at 23:30 Ondansetron HCl (Zofran Inj) 4 mg Q4H PRN IV NAUSEA AND/OR VOMITING; Start 07/31/18 at 23:30 Insulin Aspart (Novolog Insulin Pen) NOVOLOG *MILD* ALGORITHM WITH MEALS BEDTIME SC Last administered on 08/02/18at 11:42; Admin Dose 2 UNIT; Start 08/01/18 at 08:00 Cholecalciferol (Vitamin D) 2,000 unit DAILY PO Last administered on 08/02/18 08:47; Admin Dose 2,000 UNIT; Start 08/01/18 at 09:00 Pantoprazole (Protonix Tab) 40 mg DAILY@06 PO Last administered on 08/02/18at 06:17; Admin Dose 40 MG; Start 08/01/18 at 06:00 Miscellaneous Information 1 ea NOTE XX ; Start 08/01/18 at 10:30 Glucose (Glutose) 15 gm Q15M PRN PO DECREASED GLUCOSE; Start 08/01/18 at 10:30 Glucose (Glutose) 22.5 gm Q15M PRN PO DECREASED GLUCOSE; Start 08/01/18 at 10:30 Dextrose (D50w Syringe) 25 ml Q15M PRN IV DECREASED GLUCOSE; Start 08/01/18 at 10:30 Dextrose (D50w Syringe) 50 ml Q15M PRN IV DECREASED GLUCOSE; Start 08/01/18 at 10:30 Glucagon (Glucagen) 1 mg Q15M PRN IM DECREASED GLUCOSE; Start 08/01/18 at 10:30 Glucose (Glutose) 15 gm Q15M PRN BUCCAL DECREASED GLUCOSE; Start 08/01/18 at 10:30 Ceftriaxone Sodium 50 ml @ 100 mls/hr Q24H IVPB Last administered on 08/01/18at 17:32; Admin Dose 100 MLS/HR; Start 08/01/18 at 17:00 Azithromycin 250 ml @ 250 mls/hr Q24H IV Last administered on 08/01/18at 18:24; Admin Dose 250 MLS/HR; Start 08/01/18 at 17:30 Morphine Sulfate (morphine) 6 mg Q4H PRN PO SEVERE PAIN LEVEL 7-10; Start 08/02/18 at 16:00 Apixaban (Eliquis) 10 mg BID PO ; Start 08/02/18 at 21:00 MARIA EUGENIA ARMENTA DPM Aug 02, 2018 16:52
[2018-08-02] MEDS: CEFTRIAXONE 1 GM/50 ML (PMX) 50 ML IVPB SCH (17:28)
[2018-08-02] MEDS: AZITHROMYCIN 500MG/NS (PMX) 250 ML IV SCH (18:37)
[2018-08-02] MEDS: ATORVASTATIN 40 MG TAB PO SCH (20:32)
[2018-08-02] MEDS: APIXABAN 5 MG TABLET PO SCH (20:33)
[2018-08-03] VITALS (11 sets, daily range): BP systolic 107–129; BP diastolic 49–60; PULSE 88–120; RESP 17–18
[2018-08-03] MEDS: PANTOPRAZOLE (EC) 40 MG TAB PO SCH (06:07)
[2018-08-03] MEDS: INSULIN ASPART [NOVOLOG] 3 ML PEN SC SCH ×4 (07:58→20:18)
[2018-08-03] MEDS: CHOLECALCIFEROL 2,000 UNIT CAP PO SCH (08:33)
[2018-08-03] MEDS: GABAPENTIN 100 MG CAP PO SCH ×2 (08:33→20:19)
[2018-08-03] MEDS: APIXABAN 5 MG TABLET PO SCH ×2 (08:33→20:20)
--- NOTE | 2018-08-03 13:24 | PN ---
Date/Time of Note Date/Time of Note DATE: 08/03/18 TIME: 13:20 Assessment/Plan VTE Prophylaxis Risk score (from Ns)>0 risk: 9 SCD applied (from [facility] [place]): No SCD contraindicated: low risk/ambulating Pharmacological prophylaxis: NA/contraindicated Pharm contraindication: low risk/ambulating Lines/Catheters [facility] Saline Lock Urinary Cath still in place: No Assessment/Plan Hospital Course Hospital Course 1. Deep vein thrombosis (DVT) of left lower extremity:left common femoral vein, femoral vein and popliteal vein. Elevated d-dimer. Likley due to immobility, hx PE in past > off anticoagulation 2. SIRS with tachycardia and leukocytosis. It might be reactive to clotting. Xray is positive for "Patchy left basilar and lingular opacities suspicious for pneumonia and COPD. 3. CKD 4. CHF, BNP elevated 5. DM type II 6. Hx of left femoral arterial bypass 2012 7. Hx of both eyes cataract surgery 8. Overweight 9. COPD 10. Right shoulder pain. Xray is negative 11. Dyslipidemia 12. Hx of right elbow sx after fracture, most likely ORIF 13 pvd Assessment/Plan - Occluded bilateral posterior tibial arteries, which is new in the left lower extremity. Bilateral dorsalis pedis arteries, supplied via slow collateral flow. 3. Elsewhere, no hemodynamically significant stenosis however there is biphasic to monophasic waveforms in the remaining bilateral lower extremity arteries, suggestive of inflow disease. Consider further evaluation with CTA. Will check with Dr Ortiz if intervention needed - case mnager to check with eliquis coverage - PT eval - iv rocephin/azithromycin -GI prophylaxis Protonix -pain medications -pain control - f/u Heme recs Result Diagram: 08/03/18 0449 08/03/18 0449 Results 24hrs Laboratory Tests Test 08/02/18 14:43 08/02/18 17:26 08/02/18 20:31 08/03/18 04:49 Activated 42.8 H Partial Thromboplast Time Bedside Glucose 240 H 128 White Blood Count 11.1 H Red Blood Count 3.96 L Hemoglobin 12.2 Hematocrit 36.9 L Mean Corpuscular Volume 93.2 Mean Corpuscular 30.8 Hemoglobin Mean Corpuscular 33.1 Hemoglobin Concent Red Cell Distribution 13.3 Width Platelet Count 290 Mean Platelet Volume 10.8 H Immature Granulocytes % 0.400 Neutrophils % 47.9 Lymphocytes % 39.0 Monocytes % 8.7 Eosinophils % 3.1 Basophils % 0.9 Nucleated Red Blood 0.0 Cells % Immature Granulocytes # 0.040 H Neutrophils # 5.3 Lymphocytes # 4.3 H Monocytes # 1.0 H Eosinophils # 0.3 Basophils # 0.1 Nucleated Red Blood 0.0 Cells # Sodium Level 141 Potassium Level 4.0 Chloride Level 107 Carbon Dioxide Level 25 Anion Gap 9 Blood Urea Nitrogen 17 Creatinine 1.15 H Est Glomerular Filtrat Rate mL/min Glucose Level 118 Calcium Level 8.9 Test 08/03/18 07:52 08/03/18 11:41 Bedside Glucose 115 177 Subjective 24 Hr Interval Summary Free Text/Dictation Doing well ambulated with PT Arterial duplex + Occluded bilateral posterior tibial arteries, which is new in the left lower extremity. Bilateral dorsalis pedis arteries, supplied via slow collateral flow. 3. Elsewhere, no hemodynamically significant stenosis however there is biphasic to monophasic waveforms in the remaining bilateral lower extremity arteries, suggestive of inflow disease. Consider further evaluation with CTA. Exam/Review of Systems Exam Vitals Vital Signs Date Temp Pulse Resp B/P (MAP) Pulse Ox O2 O2 Flow FiO2 Time Delivery Rate 08/03/18 108 12:01 08/03/18 98.5 18 107/55 98 11:31 (72) 07/31/18 Room Air 21:41 Intake and Output 08/02/18 08/02/18 08/03/18 1515:00 23:00 07:00 IntakeIntake Total 360 ml 540 ml 400 ml OutputOutput Total 300 ml BalanceBalance 60 ml 540 ml 400 ml Exam right shoulder full ROM Constitutional: alert, oriented Head: normocephalic Eyes: nl conjunctiva Neck: supple Respiratory: clear to auscultation Cardiovascular: regular rate and rhythm Gastrointestinal: soft Musculoskeletal: joint tenderness (right heel), swelling (left leg), other (left leg scar) Results Results 24hrs Laboratory Tests Test 08/02/18 14:43 08/02/18 17:26 08/02/18 20:31 08/03/18 04:49 Activated 42.8 H Partial Thromboplast Time Bedside Glucose 240 H 128 White Blood Count 11.1 H Red Blood Count 3.96 L Hemoglobin 12.2 Hematocrit 36.9 L Mean Corpuscular Volume 93.2 Mean Corpuscular 30.8 Hemoglobin Mean Corpuscular 33.1 Hemoglobin Concent Red Cell Distribution 13.3 Width Platelet Count 290 Mean Platelet Volume 10.8 H Immature Granulocytes % 0.400 Neutrophils % 47.9 Lymphocytes % 39.0 Monocytes % 8.7 Eosinophils % 3.1 Basophils % 0.9 Nucleated Red Blood 0.0 Cells % Immature Granulocytes # 0.040 H Neutrophils # 5.3 Lymphocytes # 4.3 H Monocytes # 1.0 H Eosinophils # 0.3 Basophils # 0.1 Nucleated Red Blood 0.0 Cells # Sodium Level 141 Potassium Level 4.0 Chloride Level 107 Carbon Dioxide Level 25 Anion Gap 9 Blood Urea Nitrogen 17 Creatinine 1.15 H Est Glomerular Filtrat Rate mL/min Glucose Level 118 Calcium Level 8.9 Test 08/03/18 07:52 08/03/18 11:41 Bedside Glucose 115 177 Medications Medication Current Medications Atorvastatin Calcium (Lipitor) 40 mg QHS PO Last administered on 08/02/18 20:32; Admin Dose 40 MG; Start 08/02/18 at 21:00 Carvedilol (Coreg) 3.125 mg BID PO Last administered on 08/03/18 08:34; Admin Dose 3.125 MG; Start 08/01/18 at 09:00 Gabapentin (Neurontin) 100 mg BID PO Last administered on 08/03/18 08:33; Admin Dose 100 MG; Start 08/01/18 at 09:00 Acetaminophen (Tylenol Tab) 650 mg Q6H PRN PO MILD PAIN(1-3)OR ELEVATED TEMP; Start 07/31/18 at 23:30 Albuterol/ Ipratropium (Duoneb) 3 ml Q4H RESP THERAPY PRN HHN SHORTNESS OF BREATH; Start 07/31/18 at 23:30 Ondansetron HCl (Zofran Inj) 4 mg Q4H PRN IV NAUSEA AND/OR VOMITING; Start 07/31/18 at 23:30 Insulin Aspart (Novolog Insulin Pen) NOVOLOG *MILD* ALGORITHM WITH MEALS BEDTIME SC Last administered on 08/03/18at 11:46; Admin Dose 1 UNIT; Start 08/01/18 at 08:00 Cholecalciferol (Vitamin D) 2,000 unit DAILY PO Last administered on 08/03/18 08:33; Admin Dose 2,000 UNIT; Start 08/01/18 at 09:00 Pantoprazole (Protonix Tab) 40 mg DAILY@06 PO Last administered on 08/03/18at 06:07; Admin Dose 40 MG; Start 08/01/18 at 06:00 Miscellaneous Information 1 ea NOTE XX ; Start 08/01/18 at 10:30 Glucose (Glutose) 15 gm Q15M PRN PO DECREASED GLUCOSE; Start 08/01/18 at 10:30 Glucose (Glutose) 22.5 gm Q15M PRN PO DECREASED GLUCOSE; Start 08/01/18 at 10:30 Dextrose (D50w Syringe) 25 ml Q15M PRN IV DECREASED GLUCOSE; Start 08/01/18 at 10:30 Dextrose (D50w Syringe) 50 ml Q15M PRN IV DECREASED GLUCOSE; Start 08/01/18 at 10:30 Glucagon (Glucagen) 1 mg Q15M PRN IM DECREASED GLUCOSE; Start 08/01/18 at 10:30 Glucose (Glutose) 15 gm Q15M PRN BUCCAL DECREASED GLUCOSE; Start 08/01/18 at 10:30 Ceftriaxone Sodium 50 ml @ 100 mls/hr Q24H IVPB Last administered on 08/02/18at 17:28; Admin Dose 100 MLS/HR; Start 08/01/18 at 17:00 Azithromycin 250 ml @ 250 mls/hr Q24H IV Last administered on 08/02/18at 18:37; Admin Dose 250 MLS/HR; Start 08/01/18 at 17:30 Morphine Sulfate (morphine) 6 mg Q4H PRN PO SEVERE PAIN LEVEL 7-10; Start 08/02/18 at 16:00 Apixaban (Eliquis) 10 mg BID PO Last administered on 08/03/18at 08:33; Admin Dose 10 MG; Start 08/02/18 at 21:00 SVETLANA KRISHNAN MD Aug 03, 2018 13:24
[2018-08-03] MEDS: AZITHROMYCIN 500MG/NS (PMX) 250 ML IV SCH (17:35)
[2018-08-03] MEDS: CEFTRIAXONE 1 GM/50 ML (PMX) 50 ML IVPB SCH (17:46)
[2018-08-03] MEDS: ATORVASTATIN 40 MG TAB PO SCH (20:20)
[2018-08-04] VITALS (11 sets, daily range): BP systolic 102–138; BP diastolic 52–63; PULSE 86–142; RESP 17–22
[2018-08-04] MEDS: PANTOPRAZOLE (EC) 40 MG TAB PO SCH (05:57)
[2018-08-04] MEDS: INSULIN ASPART [NOVOLOG] 3 ML PEN SC SCH ×2 (08:00→12:33)
[2018-08-04] MEDS: GABAPENTIN 100 MG CAP PO SCH (09:32)
[2018-08-04] MEDS: CHOLECALCIFEROL 2,000 UNIT CAP PO SCH (09:32)
[2018-08-04] MEDS: APIXABAN 5 MG TABLET PO SCH (09:32)
--- NOTE | 2018-08-04 12:08 | PN ---
Date/Time of Note Date/Time of Note DATE: 08/04/18 TIME: 12:06 Assessment/Plan VTE Prophylaxis Risk score (from Ns)>0 risk: 7 SCD applied (from Ns): No SCD contraindicated: low risk/ambulating Pharmacological prophylaxis: NA/contraindicated Pharm contraindication: low risk/ambulating Lines/Catheters IV Catheter Type (from Rust): Saline Lock Urinary Cath still in place: No Assessment/Plan Hospital Course Hospital Course 1. Deep vein thrombosis (DVT) of left lower extremity:left common femoral vein, femoral vein and popliteal vein. Elevated d-dimer. Likley due to immobility, hx PE in past > off anticoagulation 2. SIRS with tachycardia and leukocytosis. It might be reactive to clotting. Xray is positive for "Patchy left basilar and lingular opacities suspicious for pneumonia and COPD. 3. CKD 4. CHF, BNP elevated 5. DM type II 6. Hx of left femoral arterial bypass 2012 7. Hx of both eyes cataract surgery 8. Overweight 9. COPD 10. Right shoulder pain. Xray is negative 11. Dyslipidemia 12. Hx of right elbow sx after fracture, most likely ORIF 13 pvd Assessment/Plan - Occluded bilateral posterior tibial arteries, which is new in the left lower extremity. Bilateral dorsalis pedis arteries, supplied via slow collateral flow. 3. Elsewhere, no hemodynamically significant stenosis however there is biphasic to monophasic waveforms in the remaining bilateral lower extremity arteries, suggestive of inflow disease. Consider further evaluation with CTA. Will check with Dr Ortiz if intervention needed -DC planning IF no intervention with Dr. Nile Subramanian Result Diagram: 08/03/18 0449 08/03/18 0449 Results 24hrs Laboratory Tests Test 08/03/18 17:34 08/03/18 20:15 08/04/18 01:58 08/04/18 08:01 Bedside Glucose 163 225 H 131 127 Subjective 24 Hr Interval Summary Free Text/Dictation Feels better left leg edema is better Exam/Review of Systems Exam Vitals Vital Signs Date Temp Pulse Resp B/P (MAP) Pulse Ox O2 O2 Flow FiO2 Time Delivery Rate 08/04/18 97.9 104 22 116/58 96 Room Air 11:20 (77) Intake and Output 08/03/18 08/03/18 08/04/18 1515:00 23:00 07:00 IntakeIntake Total 1000 ml 250 ml BalanceBalance 1000 ml 250 ml Exam ght shoulder full ROM Constitutional: alert, oriented Head: normocephalic Eyes: nl conjunctiva Neck: supple Respiratory: clear to auscultation Cardiovascular: regular rate and rhythm Gastrointestinal: soft Musculoskeletal: joint tenderness (right heel), swelling (left leg), other (l eft leg scar) Results Results Results 24hrs Laboratory Tests Test 08/03/18 17:34 08/03/18 20:15 08/04/18 01:58 08/04/18 08:01 Bedside Glucose 163 225 H 131 127 Medications Medication Current Medications Atorvastatin Calcium (Lipitor) 40 mg QHS PO Last administered on 08/03/18 20:20 ; Admin Dose 40 MG; Start 08/02/18 at 21:00 Carvedilol (Coreg) 3.125 mg BID PO Last administered on 08/04/18 09:33; Admin Dose 3.125 MG; Start 08/01/18 at 09:00 Gabapentin (Neurontin) 100 mg BID PO Last administered on 08/04/18 09:32; Admin Dose 100 MG; Start 08/01/18 at 09:00 Acetaminophen (Tylenol Tab) 650 mg Q6H PRN PO MILD PAIN(1-3)OR ELEVATED TEMP; Start 07/31/18 at 23:30 Albuterol/ Ipratropium (Duoneb) 3 ml Q4H RESP THERAPY PRN HHN SHORTNESS OF BREATH; Start 07/31/18 at 23:30 Ondansetron HCl (Zofran Inj) 4 mg Q4H PRN IV NAUSEA AND/OR VOMITING; Start 07/31/18 at 23:30 Insulin Aspart (Novolog Insulin Pen) NOVOLOG *MILD* ALGORITHM WITH MEALS BEDTIME SC Last administered on 08/03/18 20:18; Admin Dose 2 UNIT; Start 08/01/18 at 08:00 Cholecalciferol (Vitamin D) 2,000 unit DAILY PO Last administered on 08/04/18 09:32; Admin Dose 2,000 UNIT; Start 08/01/18 at 09:00 Pantoprazole (Protonix Tab) 40 mg DAILY@06 PO Last administered on 08/04/18at 05:57; Admin Dose 40 MG; Start 08/01/18 at 06:00 Miscellaneous Information 1 ea NOTE XX ; Start 08/01/18 at 10:30 Glucose (Glutose) 15 gm Q15M PRN PO DECREASED GLUCOSE; Start 08/01/18 at 10:30 Glucose (Glutose) 22.5 gm Q15M PRN PO DECREASED GLUCOSE; Start 08/01/18 at 10:30 Dextrose (D50w Syringe) 25 ml Q15M PRN IV DECREASED GLUCOSE; Start 08/01/18 at 10:30 Dextrose (D50w Syringe) 50 ml Q15M PRN IV DECREASED GLUCOSE; Start 08/01/18 at 10:30 Glucagon (Glucagen) 1 mg Q15M PRN IM DECREASED GLUCOSE; Start 08/01/18 at 10:30 Glucose (Glutose) 15 gm Q15M PRN BUCCAL DECREASED GLUCOSE; Start 08/01/18 at 10:30 Ceftriaxone Sodium 50 ml @ 100 mls/hr Q24H IVPB Last administered on 08/03/18at 17:46; Admin Dose 100 MLS/HR; Start 08/01/18 at 17:00 Azithromycin 250 ml @ 250 mls/hr Q24H IV Last administered on 08/03/18at 17:35; Admin Dose 250 MLS/HR; Start 08/01/18 at 17:30 Morphine Sulfate (morphine) 6 mg Q4H PRN PO SEVERE PAIN LEVEL 7-10; Start 08/02/18 at 16:00 Apixaban (Eliquis) 10 mg BID PO Last administered on 08/04/18at 09:32; Admin Dose 10 MG; Start 08/02/18 at 21:00 SVETLANA KRISHNAN MD Aug 04, 2018 12:08
--- NOTE | 2018-08-04 12:10 | PDOCDIS ---
Discharge Instructions DIAGNOSIS Discharge Diagnosis dvt Pneumonia CONDITION [id number] Patient Condition: [id number] Fair HOME CARE INSTRUCTIONS: [id number] Diet Instructions: [id number] Low Fat /Cholesterol ACTIVITY: [id number] Activity Restrictions: [id number] Slowly Increase Activity Rest between Activity Avoid heavy lifting FOLLOW UP/APPOINTMENTS Follow-up Plan f.u pcp IN 1 WEEK f/u Dr bradshaw in 1-2 weeks SVETLANA KRISHNAN MD Aug 04, 2018 12:10
[2018-08-04] MEDS ORDERED: APIX5TAB PO (12:11)
[2018-08-04] MEDS ORDERED: LEVO500T48 PO (12:11)
--- NOTE | 2018-08-04 12:29 | CONS ---
Assessment/Plan Assessment/Plan Hospital Course (Demo Recall) brady 88 yo sedentary, presented with LLE DVT eliquis 10 mg BID x 7 days with transition to 5 mg BID after length of anticoagulation will be determined by patient's overall activity status recommend at least 6 mos anticoagulation f/u in office in 3 weeks do not recommend hypercoagulable w/u will sign off please call with questions we will arrange for her to have outpt followup Consultation Date/Type/Reason Admit Date/Time Jul 31, 2018 at 20:49 Initial Consult Date 08/01/18 Date/Time of Note DATE: 08/04/18 TIME: 12:28 24 HR Interval Summary Free Text/Dictation pt on eliquis Exam/Review of Systems Exam Vitals Vital Signs Date Temp Pulse Resp B/P (MAP) Pulse Ox O2 O2 Flow FiO2 Time Delivery Rate 08/04/18 97.9 104 22 116/58 96 Room Air 11:20 (77) Intake and Output 08/03/18 08/03/18 08/04/18 1414:59 22:59 06:59 IntakeIntake Total 1000 ml 250 ml BalanceBalance 1000 ml 250 ml Constitutional: alert, oriented, well developed, frail Head: normocephalic, atraumatic Eyes: nl conjunctiva, EOMI, nl lids, nl sclera, PERRL ENMT: nl external ears & nose, nl lips & teeth, nl nasal mucosa & septum Respiratory: clear to auscultation, normal air movement Cardiovascular: regular rate and rhythm, nl pulses Extremities: normal pulses Results Result Diagram: 08/03/18 0449 08/03/189 Results 24hrs Laboratory Tests Test 08/03/18 17:34 08/03/18 20:15 08/04/18 01:58 08/04/18 08:01 Bedside Glucose 163 225 H 131 127 Test 08/04/18 12:15 Bedside Glucose 212 Medications Medication Current Medications Atorvastatin Calcium (Lipitor) 40 mg QHS PO Last administered on 08/03/18at 20:20; Admin Dose 40 MG; Start 08/02/18 at 21:00 Carvedilol (Coreg) 3.125 mg BID PO Last administered on 08/04/18at 09:33; Admin Dose 3.125 MG; Start 08/01/18 at 09:00 Gabapentin (Neurontin) 100 mg BID PO Last administered on 08/04/18at 09:32; Admin Dose 100 MG; Start 08/01/18 at 09:00 Acetaminophen (Tylenol Tab) 650 mg Q6H PRN PO MILD PAIN(1-3)OR ELEVATED TEMP; Start 07/31/18 at 23:30 Albuterol/ Ipratropium (Duoneb) 3 ml Q4H RESP THERAPY PRN HHN SHORTNESS OF BREATH; Start 07/31/18 at 23:30 Ondansetron HCl (Zofran Inj) 4 mg Q4H PRN IV NAUSEA AND/OR VOMITING; Start 07/31/18 at 23:30 Insulin Aspart (Novolog Insulin Pen) NOVOLOG *MILD* ALGORITHM WITH MEALS BEDTIME SC Last administered on 08/03/18at 20:18; Admin Dose 2 UNIT; Start 08/01/18 at 08:00 Cholecalciferol (Vitamin D) 2,000 unit DAILY PO Last administered on 08/04/18at 09:32; Admin Dose 2,000 UNIT; Start 08/01/18 at 09:00 Pantoprazole (Protonix Tab) 40 mg DAILY@06 PO Last administered on 08/04/18at 05:57; Admin Dose 40 MG; Start 08/01/18 at 06:00 Miscellaneous Information 1 ea NOTE XX ; Start 08/01/18 at 10:30 Glucose (Glutose) 15 gm Q15M PRN PO DECREASED GLUCOSE; Start 08/01/18 at 10:30 Glucose (Glutose) 22.5 gm Q15M PRN PO DECREASED GLUCOSE; Start 08/01/18 at 10:30 Dextrose (D50w Syringe) 25 ml Q15M PRN IV DECREASED GLUCOSE; Start 08/01/18 at 10:30 Dextrose (D50w Syringe) 50 ml Q15M PRN IV DECREASED GLUCOSE; Start 08/01/18 at 10:30 Glucagon (Glucagen) 1 mg Q15M PRN IM DECREASED GLUCOSE; Start 08/01/18 at 10:30 Glucose (Glutose) 15 gm Q15M PRN BUCCAL DECREASED GLUCOSE; Start 08/01/18 at 10:30 Ceftriaxone Sodium 50 ml @ 100 mls/hr Q24H IVPB Last administered on 08/03/18at 17:46; Admin Dose 100 MLS/HR; Start 08/01/18 at 17:00 Azithromycin 250 ml @ 250 mls/hr Q24H IV Last administered on 08/03/18at 17:35; Admin Dose 250 MLS/HR; Start 08/01/18 at 17:30 Morphine Sulfate (morphine) 6 mg Q4H PRN PO SEVERE PAIN LEVEL 7-10; Start 08/02/18 at 16:00 Apixaban (Eliquis) 10 mg BID PO Last administered on 08/04/18 09:32; Admin Dose 10 MG; Start 08/02/18 at 21:00 MELCHOR LUNA Aug 04, 2018 12:29
--- NOTE | 2018-08-04 14:08 | PN ---
Date/Time of Note Date/Time of Note DATE: 08/04/18 TIME: 14:06 Assessment/Plan Lines/Catheters IV Catheter Type (from Nrsg): Saline Lock [place] in Place (from Nrsg): No Assessment/Plan Assessment/Plan Peripheral vascular disease DVT No signs of severe ischemic leg at the present time Would continue present management we will follow-up in my office for further management of the peripheral vascular disease We will continue anticoagulation Subjective 24 Hr Interval Summary Constitutional: improved Pain Control: mild Exam/Review of Systems Vital Signs Vitals Vital Signs Date Temp Pulse Resp B/P (MAP) Pulse Ox O2 O2 Flow FiO2 Time Delivery Rate 08/04/18 119 12:00 08/04/18 97.9 22 116/58 96 Room Air 11:20 (77) Intake and Output 08/03/18 08/03/18 08/04/18 1515:00 23:00 07:00 IntakeIntake Total 1000 ml 250 ml BalanceBalance 1000 ml 250 ml Exam Eyes: nl conjunctiva, EOMI, nl lids, nl sclera ENMT: nl external ears & nose, nl lips & teeth, nl nasal mucosa & septum, mucosa pink and moist Neck: supple, non-tender Respiratory: clear to auscultation, normal air movement Cardiovascular: regular rate and rhythm, nl pulses Gastrointestinal: soft, nl liver, spleen, non-tender Musculoskeletal: nl extremities to inspection, nl gait and stance Extremities: normal pulses Results Result Diagram: 08/03/18 0449 08/03/18 0449 ZACHERY SCHUMACHER MD Aug 04, 2018 14:08
== END 2018-08-04 16:34 | disposition home health service (06) | DRG 300 ==
LOC: E/R 16:15 → 6WM 20:49
PROVIDERS: ADMIT Internal Medicine; ATTEND Internal Medicine
DX: I82.412 Acute embolism and thrombosis of left femoral vein (principal); N17.9 Acute kidney failure, unspecified; R65.10 Systemic inflammatory response syndrome (SIRS) of non-infectious origin without acute organ dysfunction; I13.0 Hypertensive heart and chronic kidney disease with heart failure and stage 1 through stage 4 chronic kidney disease, or unspecified chronic kidney disease; I82.432 Acute embolism and thrombosis of left popliteal vein; I50.9 Heart failure, unspecified; J44.9 Chronic obstructive pulmonary disease, unspecified; Z68.29 Body mass index [BMI] 29.0-29.9, adult; E78.5 Hyperlipidemia, unspecified; E11.22 Type 2 diabetes mellitus with diabetic chronic kidney disease; N18.9 Chronic kidney disease, unspecified; Z98.890 Other specified postprocedural states; E66.3 Overweight; E11.42 Type 2 diabetes mellitus with diabetic polyneuropathy; Z86.711 Personal history of pulmonary embolism
CPT/HCPCS: 36415; 71045; 71275; 80048; 82962; 83036; 83880; 84484; 85025; 85378; 85610; 85730; 93005; 93922; 93971; 96374; 97162; J0456; J0696; J1644; J1815; J2270; J2405; J7030; Q9967